=== PATIENT | male | born 1970 | race African-American/Black ===

== ENCOUNTER 2016-09-02 18:02 | Emergency (ER) | payer BC, OTHER ==
[2016-09-02 18:27] VITALS: BP 152/85; PULSE 88; TEMP 99; BMI 26.1
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
== END 2016-09-02 21:19 | disposition home or self-care (01) ==
LOC: FER 18:02
DX: S43.402A Unspecified sprain of left shoulder joint, initial encounter (principal); V18.4XXA Pedal cycle driver injured in noncollision transport accident in traffic accident, initial encounter; Y93.55 Activity, bike riding; Y92.410 Unspecified street and highway as the place of occurrence of the external cause; F17.210 Nicotine dependence, cigarettes, uncomplicated
CPT/HCPCS: 73030-TC-LT; 99282-25

== ENCOUNTER 2022-01-30 09:45 | Emergency (ER) | payer BC ==
[2022-01-30 09:53] VITALS: BMI 26.4
[2022-01-30] MEDS ORDERED: ACETAMINOPHEN 500 MG TABLET (FP) PO ONE (10:02)
[2022-01-30] MEDS ORDERED: ALBUTEROL SO4 2.5/IPRATROPIUM 0.5 INH SOL 3 ML VIAL.NEB. NEB ONE ×2 (11:43→12:51)
[2022-01-30] MEDS ORDERED: predniSONE 20 MG TABLET (UD) PO ONE (11:44)
[2022-01-30] MEDS ORDERED: predniSONE 20 MG TABLET (UD) ONE (12:51)
[2022-01-30 13:45] VITALS: BP 126/73; PULSE 86; RESP 20; TEMP 98.9
== END 2022-01-30 13:50 | disposition home or self-care (01) ==
LOC: JER 09:45
PROC: 3E0F7GC Introduction of Other Therapeutic Substance into Respiratory Tract, Via Natural or Artificial Opening (ICD-10-PCS; principal; 2022-01-30)
DX: J21.0 Acute bronchiolitis due to respiratory syncytial virus (principal)
CPT/HCPCS: 0241U-QW; 71046-TC-FY; 99284-25